=== PATIENT | female | born 1990 | race Caucasian/White ===

== ENCOUNTER → 2018-12-02 10:42 | Outpatient (CLI) | payer BC, SELFPAY ==
[2018-12-02 11:34] LABS: Hemoglobin 13.9 g/dL (12.0-16.0); Mean Corpuscular HGB Conc 33.9 % (30-36); Mean Corpuscular Volume 88.6 fL (80-100); Platelet Count 374 X10^3/uL (150-400); Red Blood Cell Count 4.63 X10^6/uL (4.0-5.2); Red Cell Distribution Width 13.7 % (11.6-14.8); White Blood Cell Count 9.1 X10^3/uL (4.5-11.0)
[2018-12-02 12:08] LABS: Alanine Aminotransferase 14 IU/L (9-52); Albumin 4.2 g/dL (3.5-5.0); Albumin Globulin Ratio 1.1 (1.0-2.8); Alkaline Phosphatase 82 U/L (38-126); Aspartate Aminotransferase 18 IU/L (14-36); Bilirubin Total 1.4 mg/dL (0.2-1.3); Blood Urea Nitrogen 9 mg/dL (7-17); Calcium 9.5 mg/dL (8.4-10.2); Carbon Dioxide 26 mmol/L (22-32); Chloride 102 mmol/L (98-107); Cholesterol 238 mg/dL (140-199); Estimated Glomerular Filt Rate > 60.0 mL/min (>60); Globulin 3.8 g/dL (1.7-4.1); Glucose 82 mg/dL (70-100); HDL Cholesterol 43 mg/dL (40-60); HEMOLYSIS < 15 (0-50); LDL Cholesterol Calculated 164 mg/dL (<100); Magnesium 1.9 mg/dL (1.6-2.3); Potassium 4.1 mmol/L (3.4-5.1); Sodium 138 mmol/L (137-145); Triglycerides 156 mg/dL (35-150)
[2018-12-02 12:20] LABS: Appearance Urine UA CLEAR; Bilirubin Urine UA NEGATIVE (NEGATIVE); Color Urine UA YELLOW; Glucose Urine UA NEGATIVE (Negative); Ketones Urine UA NEGATIVE (NEGATIVE); Leukocyte Esterase Urine UA TRACE (NEGATIVE); Nitrite Urine UA NEGATIVE (Negative); Occult Blood Urine UA 1+ (Negative); Protein Urine UA NEGATIVE (Negative); Specific Gravity Urine UA 1.015 (1.000-1.035); Urobilinogen Urine UA 0.2 E.U./dL (0.2); pH Urine UA 6.5 (4.5-8.0)
[2018-12-02 12:34] LABS: RBC Urine 1-5/HPF (0-5/HPF); Squamous Epithelial Cell Urine 5-10 /HPF (0-5/HPF); WBC Urine 1-5/HPF (0-5/HPF)
[2018-12-02 12:35] LABS: Bacteria Urine Many (>30); Mucus Urine 1+ (Negative)
[2018-12-02 13:11] LABS: Folate 6.6 ng/mL (2.76-20.0); Vitamin B12 402 pg/mL (239-931)
== END ==
PROVIDERS: Visit Provider Nurse Practitioner Family
DX: F50.2 Bulimia nervosa (principal); Z13.6 Encounter for screening for cardiovascular disorders; R53.83 Other fatigue
CPT/HCPCS: 36415; 80053; 80061; 81001; 82607; 82746; 83735; 85027

== ENCOUNTER → 2018-12-05 07:47 | Outpatient (CLI) | payer BC, SELFPAY ==
[2018-12-05 08:17] LABS: Bacteria Urine None Seen; RBC Urine None Seen (0-5/HPF); WBC Urine None Seen (0-5/HPF)
[2018-12-05 08:26] LABS: Appearance Urine UA CLEAR; Bilirubin Urine UA NEGATIVE (NEGATIVE); Color Urine UA YELLOW; Glucose Urine UA NEGATIVE (Negative); Ketones Urine UA NEGATIVE (NEGATIVE); Leukocyte Esterase Urine UA NEGATIVE (NEGATIVE); Nitrite Urine UA NEGATIVE (Negative); Occult Blood Urine UA 1+ (Negative); Protein Urine UA NEGATIVE (Negative); Urobilinogen Urine UA 0.2 E.U./dL (0.2); pH Urine UA 5.5 (4.5-8.0)
[2018-12-05 08:37] LABS: Culture Indicated Urine Cult Not Indicated; Urine Comments Microscopic Normal
== END ==
PROVIDERS: Visit Provider Nurse Practitioner Family
DX: R31.9 Hematuria, unspecified (principal)
CPT/HCPCS: 81001

== ENCOUNTER → 2018-12-21 07:29 | Outpatient (CLI) | payer BC, SELFPAY ==
[2018-12-21 07:52] LABS: Appearance Urine UA CLEAR; Bilirubin Urine UA NEGATIVE (NEGATIVE); Color Urine UA YELLOW; Glucose Urine UA NEGATIVE (Negative); Ketones Urine UA NEGATIVE (NEGATIVE); Leukocyte Esterase Urine UA NEGATIVE (NEGATIVE); Nitrite Urine UA NEGATIVE (Negative); Occult Blood Urine UA TRACE-LYSED (Negative); Protein Urine UA NEGATIVE (Negative); Specific Gravity Urine UA 1.025 (1.000-1.035); Urobilinogen Urine UA 0.2 E.U./dL (0.2)
[2018-12-21 08:14] LABS: RBC Urine 0-1/HPF (0-5/HPF); WBC Urine 0-1/HPF (0-5/HPF)
[2018-12-21 08:15] LABS: Bacteria Urine Few (2-10); Culture Indicated Urine Cult Not Indicated; Mucus Urine 1+ (Negative)
== END ==
PROVIDERS: Visit Provider Nurse Practitioner Family
DX: R31.9 Hematuria, unspecified (principal)
CPT/HCPCS: 81001

== ENCOUNTER → 2019-03-01 16:42 | Outpatient (CLI) | payer BC, SELFPAY ==
[2019-03-01 18:11] LABS: Hematocrit 40.2 % (36-46); Hemoglobin 13.6 g/dL (12.0-16.0); Mean Corpuscular HGB Conc 33.9 % (30-36); Mean Corpuscular Hemoglobin 30.4 PG (26-34); Mean Corpuscular Volume 89.7 fL (80-100); Platelet Count 393 X10^3/uL (150-400); Red Blood Cell Count 4.48 X10^6/uL (4.0-5.2); Red Cell Distribution Width 13.5 % (11.6-14.8); White Blood Cell Count 12.3 X10^3/uL (4.5-11.0)
[2019-03-01 18:16] LABS: BUN Creatinine Ratio 21.7 (6-22); Blood Urea Nitrogen 13 mg/dL (7-17); Calcium 9.5 mg/dL (8.4-10.2); Carbon Dioxide 31 mmol/L (22-32); Chloride 97 mmol/L (98-107); Estimated Glomerular Filt Rate > 60.0 mL/min (>60); Glucose 85 mg/dL (70-100); HEMOLYSIS < 15 (0-50); Potassium 4.4 mmol/L (3.4-5.1); Sodium 136 mmol/L (137-145)
== END ==
PROVIDERS: Visit Provider Nurse Practitioner Family
DX: F50.9 Eating disorder, unspecified (principal)
CPT/HCPCS: 36415; 80048; 85027

== ENCOUNTER → 2019-03-04 09:14 | Outpatient (CLI) | payer BC, SELFPAY ==
--- NOTE | 2019-03-04 | DI.CT.S_ITS ---
PROCEDURE: CT ABDOMEN PELVIS WO/W CON INDICATIONS: Other microscopic hematuria TECHNIQUE: Optional 5 mm thick noncontrast images acquired from the diaphragm to the symphysis pubis. After the administration of intravenous contrast, 5 mm thick images acquired from the diaphragm to the symphysis pubis after a 10-minute delay. 2 mm thick coronal and sagittal reformats were then performed of the kidneys and ureters. For radiation dose reduction, the following was used: automated exposure control, adjustment of mA and/or kV according to patient size. COMPARISON: None. FINDINGS: Image quality: Excellent. Lung bases: Lung bases are clear. Heart size is normal. Urinary system: Both kidneys are normal in size, without hydronephrosis or nephrolithiasis on pre-contrast images. No perinephric fat stranding. There is normal bilateral renal enhancement. Renal calyces appear normal in morphology when filled with contrast. Opacified portions of both ureters demonstrate normal caliber. The left distal ureter beginning at the pelvic inlet was not opacified with contrast. Bladder wall thickness is normal. No calcified bladder stones. Other solid organs: Liver is normal in size and enhancement. Gallbladder appears normal. Biliary system is non dilated. Pancreas enhances normally. Spleen is normal in size and enhancement. No adrenal nodules. Peritoneum and bowel: Bowel loops demonstrate normal wall thickness and caliber. Normal appendix. No free fluid or air. Nodes and vessels: No retroperitoneal or mesenteric adenopathy by size criteria. Aorta and inferior vena cava are normal in size. Abdominal wall: No ventral hernias. Pelvis: No pathologic free pelvic fluid. No inguinal hernias or adenopathy. Uterus and ovaries appear normal. Bones: No suspicious bony lesions. No vertebral body compression fractures. IMPRESSION: 1. No evidence of urinary calcification or obstructive uropathy. 2. Etiology of the hematuria is not evident from this study. Dictated by: Ashtyn Cornell M.D. on 03/04/2019 at 10:17 Approved by: Ashtyn Cornell M.D. on 03/04/2019 at 10:24
== END ==
PROVIDERS: Family Provider Nurse Practitioner Family; PCP Nurse Practitioner Family; Visit Provider Urology
DX: R31.29 Other microscopic hematuria (principal)
CPT/HCPCS: 74178; Q9967

== ENCOUNTER → 2019-06-01 17:02 | Outpatient (CLI) | payer BC, SELFPAY ==
[2019-06-01 17:31] LABS: Hemoglobin 13.3 g/dL (12.0-16.0); Mean Corpuscular Hemoglobin 30.9 PG (26-34); Mean Corpuscular Volume 90.9 fL (80-100); Platelet Count 382 X10^3/uL (150-400); Red Blood Cell Count 4.29 X10^6/uL (4.0-5.2); Red Cell Distribution Width 13.5 % (11.6-14.8); White Blood Cell Count 10.7 X10^3/uL (4.5-11.0)
[2019-06-01 18:01] LABS: Alanine Aminotransferase 17 IU/L (<35); Albumin 4.4 g/dL (3.5-5.0); Albumin Globulin Ratio 1.2 (1.0-2.8); Alkaline Phosphatase 91 U/L (38-126); Amylase 63 U/L (30-110); Aspartate Aminotransferase 20 IU/L (14-36); BUN Creatinine Ratio 22.9 (6-22); Bilirubin Total 0.7 mg/dL (0.2-1.3); Blood Urea Nitrogen 16 mg/dL (7-17); Calcium 9.7 mg/dL (8.4-10.2); Carbon Dioxide 29 mmol/L (22-32); Chloride 104 mmol/L (98-107); Estimated Glomerular Filt Rate > 60.0 mL/min (>60); Globulin 3.7 g/dL (1.7-4.1); Glucose 90 mg/dL (70-100); HEMOLYSIS < 15 (0-50); Magnesium 2.2 mg/dL (1.6-2.3); Potassium 4.7 mmol/L (3.4-5.1); Sodium 141 mmol/L (137-145); Total Protein 8.1 g/dL (6.3-8.2)
[2019-06-01 18:29] LABS: TSH w/ Reflex to FT4 1.69 uIU/mL (0.47-4.68)
== END ==
PROVIDERS: Family Provider Nurse Practitioner Family; PCP Nurse Practitioner Family; Referring Provider Nurse Practitioner Family; Visit Provider Nurse Practitioner Family
DX: F50.2 Bulimia nervosa (principal)
CPT/HCPCS: 36415; 80053; 82150; 83735; 84443; 85027

== ENCOUNTER 2019-06-02 21:05 | Emergency (ER) | payer BC, SELFPAY ==
[2019-06-02 21:05] VITALS: BMI 40.2
[2019-06-02 22:00] VITALS: BP 142/89; PULSE 72; RESP 15; O2SAT 98
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
[2019-06-02 22:08] LABS: Add Manual Diff / Slide Review NO; Basophils Absolute Auto 100 /uL (0-100); Basophils Percent Auto 0.7 % (0-2); Eosinophils Absolute Auto 100 /uL (0-450); Hemoglobin 14.2 g/dL (12.0-16.0); Lymphocytes Absolute Auto 4700 /uL (1100-4500); Lymphocytes Percent Auto 43.2 % (25-40); Mean Corpuscular HGB Conc 33.8 % (30-36); Mean Corpuscular Hemoglobin 30.2 PG (26-34); Mean Corpuscular Volume 89.6 fL (80-100); Monocytes Absolute Auto 600 /uL (0-900); Monocytes Percent Auto 5.5 % (3-14); Neutrophils Absolute Auto 5400 /uL (1500-7000); Neutrophils Percent Auto 49.6 % (50-75); Platelet Count 411 X10^3/uL (150-400); Red Blood Cell Count 4.69 X10^6/uL (4.0-5.2); Red Cell Distribution Width 13.4 % (11.6-14.8); White Blood Cell Count 10.8 X10^3/uL (4.5-11.0)
[2019-06-02] MEDS: hydrOXYzine pamoate 25 MG CAPSULE PO (22:18)
[2019-06-02 22:20] LABS: Lipase 68 U/L (23-300); Salicylate < 1.0 mg/dL (<20)
[2019-06-02 22:22] LABS: Acetaminophen < 10 ug/mL (10-30); Alanine Aminotransferase 21 IU/L (<35); Albumin 4.9 g/dL (3.5-5.0); Albumin Globulin Ratio 1.1 (1.0-2.8); Alkaline Phosphatase 110 U/L (38-126); Aspartate Aminotransferase 45 IU/L (14-36); Bilirubin Total 0.9 mg/dL (0.2-1.3); Blood Urea Nitrogen 12 mg/dL (7-17); Calcium 9.8 mg/dL (8.4-10.2); Carbon Dioxide 24 mmol/L (22-32); Chloride 102 mmol/L (98-107); Estimated Glomerular Filt Rate > 60.0 mL/min (>60); Ethanol (ETOH) < 10 mg/dL; Globulin 4.4 g/dL (1.7-4.1); Glucose 111 mg/dL (70-100); HEMOLYSIS 23 (0-50); Potassium 3.5 mmol/L (3.4-5.1); Sodium 138 mmol/L (137-145); Total Protein 9.3 g/dL (6.3-8.2)
[2019-06-02 22:28] LABS: Pregnancy Test Serum,Qual Negative (Negative)
[2019-06-02 22:56] LABS: Thyroid Stimulating Hormone 3.01 uIU/mL (0.47-4.68)
--- NOTE | 2019-06-02 23:12 | PC.NURSE ---
I spent 1:1 time with pt upon arrival until arrived. patients here 4303 States they have things they do together to get her to snap out of this. I left them together in room 13. He played her some songs and spoke with her. after 15 minutes, pt appears calm and (Frantz) calls me into her room. He states they are ready to go home. Frantz tells me that she went to a trauma therapy group and was supposed to return home. When she did not return he called her Mom and called her cell phone. I answered her cell phone when she arrived and when she did not answer my questions. Frantz says they are ready to go home. Pt states she feels safe going home and denies any thoughts of harming herself or others. Dr. Vick in to evaluate pt and agrees that pt cannot be held and is safe to go home with her .
== END 2019-06-02 23:27 | disposition home or self-care (01) ==
PROVIDERS: Emergency Provider Emergency Medicine; Family Provider Nurse Practitioner Family; PCP Nurse Practitioner Family
DX: F22 Delusional disorders (principal)
CPT/HCPCS: 80053; 80320; 80329; 83690; 84443; 84703; 85025; 99283; 99291; 99292; G0480

== ENCOUNTER 2019-06-03 10:08 | Emergency (ER) | payer BC, SELFPAY ==
--- NOTE | 2019-06-03 10:47 | PC.NURSE ---
pt paranoid, feels safest in the room with the door locked. pt afraid they are going to get me assured patient she was safe.
--- NOTE | 2019-06-03 10:49 | PC.NURSE ---
Attempted to contact all emergency contacts without success.
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
--- NOTE | 2019-06-03 11:59 | PC.NURSE ---
patient is sitting in corner of room between the wall and the gurney. Pt has ice pack. Pts and pccykh-gt-mue are in room with her. Pt is mumbling about glen ullin and cahto as well as saying omid Lopez.
[2019-06-03 12:04] LABS: Alanine Aminotransferase 21 IU/L (<35); Albumin 4.6 g/dL (3.5-5.0); Albumin Globulin Ratio 1.1 (1.0-2.8); Alkaline Phosphatase 91 U/L (38-126); Aspartate Aminotransferase 32 IU/L (14-36); BUN Creatinine Ratio 18.3 (6-22); Bilirubin Total 0.9 mg/dL (0.2-1.3); Blood Urea Nitrogen 11 mg/dL (7-17); Calcium 9.4 mg/dL (8.4-10.2); Carbon Dioxide 21 mmol/L (22-32); Chloride 106 mmol/L (98-107); Estimated Glomerular Filt Rate > 60.0 mL/min (>60); Ethanol (ETOH) < 10 mg/dL; Globulin 4.1 g/dL (1.7-4.1); Glucose 104 mg/dL (70-100); HEMOLYSIS 42 (0-50); Potassium 4.1 mmol/L (3.4-5.1); Sodium 139 mmol/L (137-145); Total Protein 8.7 g/dL (6.3-8.2)
--- NOTE | 2019-06-03 12:10 | PC.NURSE ---
Patients gave pt her normal medication (RN approved). Pt swallowed pill then went into the bathroom. The patient then proceeded to try to make herself vomit up the pill. STEPHANIE Ku convinced the pt to come out of the bathroom and sit on the bed. Pt is now offering to give another blood sample. Lab is on the way.
--- NOTE | 2019-06-03 12:15 | PC.NURSE ---
Patient is allowing her to sit on the gurney with her. Pt is asking why she is here in the ED and what happened. Pts gave her an ice pack which she is now holding on her neck
--- NOTE | 2019-06-03 12:25 | PC.NURSE ---
The patients is attempting to reorient the patient to current times. Pt is asking both her and mother in law about when theyre going to work and is saying shes sorry for being a burden
--- NOTE | 2019-06-03 12:29 | PC.NURSE ---
lab is at bedside, pt is tolerating the draw well
--- NOTE | 2019-06-03 12:30 | PC.NURSE ---
I have remained with 1:1 care with this pt from [id number]. Pt tries to continually leave department and is not trusting of staff. arrives and uses techniques already in place to talk patient out of her states.. and mother in law at bedside talking to pt.
--- NOTE | 2019-06-03 12:45 | PC.NURSE ---
pt is laying on [employer] with blanket over her head
[2019-06-03 12:46] LABS: Add Manual Diff / Slide Review NO; Basophils Absolute Auto 100 /uL (0-100); Basophils Percent Auto 0.7 % (0-2); Eosinophils Absolute Auto 100 /uL (0-450); Eosinophils Percent Auto 0.8 % (2-4); Hematocrit 39.9 % (36-46); Hemoglobin 13.6 g/dL (12.0-16.0); Lymphocytes Absolute Auto 2700 /uL (1100-4500); Lymphocytes Percent Auto 31.6 % (25-40); Mean Corpuscular HGB Conc 34.2 % (30-36); Mean Corpuscular Hemoglobin 30.5 PG (26-34); Mean Corpuscular Volume 89.2 fL (80-100); Monocytes Absolute Auto 600 /uL (0-900); Monocytes Percent Auto 6.6 % (3-14); Neutrophils Absolute Auto 5100 /uL (1500-7000); Neutrophils Percent Auto 60.3 % (50-75); Platelet Count 392 X10^3/uL (150-400); Red Blood Cell Count 4.47 X10^6/uL (4.0-5.2); Red Cell Distribution Width 13.5 % (11.6-14.8); White Blood Cell Count 8.5 X10^3/uL (4.5-11.0)
[2019-06-03 12:46] LABS: Thyroid Stimulating Hormone 1.99 uIU/mL (0.47-4.68)
--- NOTE | 2019-06-03 12:52 | PC.NURSE ---
Patient gave urine sample, was cooperative with this MARBLE INSTALLATION HELPER. Pt is now laying on the gurney with eyes closed
[2019-06-03 12:55] LABS: Bacteria Urine None Seen; WBC Urine None Seen (0-5/HPF)
[2019-06-03 13:01] LABS: Appearance Urine UA CLEAR; Bilirubin Urine UA NEGATIVE (NEGATIVE); Color Urine UA YELLOW; Glucose Urine UA NEGATIVE (Negative); Ketones Urine UA NEGATIVE (NEGATIVE); Leukocyte Esterase Urine UA NEGATIVE (NEGATIVE); Nitrite Urine UA NEGATIVE (Negative); Occult Blood Urine UA 2+ (Negative); Protein Urine UA NEGATIVE (Negative); Urobilinogen Urine UA 0.2 E.U./dL (0.2)
--- NOTE | 2019-06-03 13:03 | PC.NURSE ---
Pt is asking what time it is and how long shes been here. Pt repeatedly states she would like to go home. Pt is aware that test results are still pending.
[2019-06-03 13:05] LABS: Pregnancy Test Urine Negative (Negative); Ur Creatinine Normal (Normal); Ur Specific Gravity Normal (Normal); Urine pH Normal (Normal)
[2019-06-03 13:06] LABS: UR Morphine/Opiate cutoff 300 Negative (Negative); Urine Amphetamines Negative (Negative); Urine Barbiturates Negative (Negative); Urine Benzodiazepines Negative (Negative); Urine Cocaine Negative (Negative); Urine MDMA Negative (Negative); Urine Methadone Negative (Negative); Urine Methamphetamines Negative (Negative); Urine Oxycodone Negative (Negative); Urine Phencyclidine Negative (Negative); Urine Tetrahydrocannabinol Negative (Negative); Urine Tricyclic Antidepressant Negative (Negative)
[2019-06-03 13:10] LABS: pH Urine UA 6.5 (4.5-8.0)
[2019-06-03 13:12] LABS: Culture Indicated Urine Cult Not Indicated; RBC Urine 5-10/HPF (0-5/HPF)
--- NOTE | 2019-06-03 13:15 | PC.NURSE ---
pt dangling head over the edge of the gurney. Pt seems calm. Her and mother in law are at bedside. The pt is under constant supervision by this HEAD SAMPLER
--- NOTE | 2019-06-03 13:19 | PC.NURSE ---
Pt states she would like to speak to the DR. Pt stated that she would be okay with Dr Zayas coming to speak with her
--- NOTE | 2019-06-03 13:26 | DI.CT.S_ITS ---
PROCEDURE: CT HEAD/BRAIN WO CON INDICATIONS: mental status change TECHNIQUE: Noncontrast 4.5 mm thick angled axial sections acquired from the foramen magnum to the vertex, with coronal and sagittal reformats. For radiation dose reduction, the following was used: automated exposure control, adjustment of mA and/or kV according to patient size. COMPARISON: None. FINDINGS: Image quality: Excellent. CSF spaces: Basal cisterns are patent. No extra-axial fluid collections. Ventricles are normal in size and shape. Brain: No midline shift. No intracranial masses or hemorrhage. Brown-white matter interface is normal. Skull and face: Calvarium and visualized facial bones are intact, without suspicious lesions. Sinuses: There is a calcific density in the left maxillary sinus. Visualized sinuses and mastoids are otherwise clear. IMPRESSION: 1. No acute intracranial abnormalities. Dictated by: Melba Gates M.D. on 06/03/2019 at 13:56 Approved by: Melba Gates M.D. on 06/03/2019 at 14:00
--- NOTE | 2019-06-03 13:41 | PC.NURSE ---
Pt was taken to CT under the supervision of this ROLL FORMING MACHINE OPERATOR. The pt tolerated the scan well. Pt flinched whenever the male tech was near or got close to her. Patient was cooperative throughout the whole procedure.
--- NOTE | 2019-06-03 14:12 | PC.NURSE ---
pt is requesting a copy of her ED report from her visit yesterday 06/02. I told the pt that unfortunately she would have to go through medical records in order to get a copy of that. Pt is understanding at this time.
--- NOTE | 2019-06-03 14:17 | PC.NURSE ---
Dr Zayas at bedside
[2019-06-03 16:29] VITALS: BP 127/82; PULSE 72; RESP 16; O2SAT 100
--- NOTE | 2019-06-03 16:37 | CM.SWNOTE ---
DRAFTING TEACHER Consult Note This DRAFTING TEACHER requested for behavioral health assessment. This 29 yo female presents for the second day in a row to ED for extreme paranoid behavior, repeating words and phrases, not acting normally, and noncommunicative w/h/o Trauma and active PTSD Reviewed chart; Dr Vick saw Radha 2. and completed safety planning w/she and her spouse as they had requested. Dr Vick felt Radha did not meet the grave disability criteria to be detained. Today, STEPHANIE Ku explains that Radha calmed substantially after administration of meds, cool rag and arrival of her who has been playing calming music in her room, ED Rm 13. Met w/Radha and her Marcos, explained SW role. Radha is very soft spoken, states she is tired, she sounds younger than stated age, much like a teenager. Radha is A+O but does seem groggy, she admits to not remembering many of the details of her two presentations to the ED in the last 24-48 hrs (even though she drove herself to the ED 06.02.19, per STEPHANIE Ku). Radha further admits to h/o Trauma; she states she went to work yesterday, worked late felt stressed and attended her trauma group, she doesn't have much recollection after that. Radha states the meds she was started on during her eating disorder treatment in [place] seemed helpful and she remains on those, they help w/nightmares and daily anxiousness. Radha is resistant to another inpt treatment program and states (re: the program in [place]) they took away all my coping strategies and left me with nothing. Radha and Marcos agreed they wanted to go home and this DRAFTING TEACHER explained Radha would be considered a voluntary candidate to an inpt MH unit if she were agreeable; Radha denied SI/HI and was willing to go to her counselor Dea Barker who practiced EMDR/trauma focused work. Radha wanted to go home today. Placed call to Dea Barker, [facility] P# [phone], she explained she was new to seeing Radha and that when she spoke to her tele psychiatrist, he recommended she return to an inpt MH program because he suspected she was dissociating. Explained that Radha was not agreeable to this plan but was willing to see Dea for immediate f/u and Dea was able to scheduled for a counseling appt tomorrow 06.04.19 at 1300. Radha and spouse agreeable to plan, and agreed to return to the ED if Radha's symptoms returned Relayed above to Dr Zayas who plans to prepare Radha for DC [facility] [place]
== END 2019-06-03 16:37 | disposition home or self-care (01) ==
PROVIDERS: Emergency Provider Emergency Medicine; Family Provider Nurse Practitioner Family; PCP Nurse Practitioner Family
DX: F43.11 Post-traumatic stress disorder, acute (principal); R41.82 Altered mental status, unspecified
CPT/HCPCS: 70450; 80053; 80305; 80320; 81001; 81025; 84443; 85025; 99284

== ENCOUNTER → 2019-07-05 08:10 | Outpatient (CLI) | payer BC, SELFPAY ==
--- NOTE | 2019-07-05 | DI.US.S_ITS ---
PROCEDURE: US ABDOMEN COMPLETE INDICATIONS: NAUSEA WITH VOMITITNG TECHNIQUE: Real-time scanning was performed of the abdominal and retroperitoneal organs, with image documentation. COMPARISON: [facility], CT, CT ABDOMEN PELVIS WO/W CON, 03/04/2019, 9:20. FINDINGS: Liver: Liver is normal in size and homogeneous in echotexture. Gallbladder: No findings of gallstones or sludge are seen. The gallbladder wall is not thickened, measuring 3 mm or less. No specific pericholecystic fluid is seen. The sonographic Bernal sign is negative. Biliary ducts: Intrahepatic bile ducts are non-dilated. Extrahepatic bile duct caliber measures 3 mm. Normal is 6-7 mm or less in diameter, or 10 mm or less post-cholecystectomy. Pancreas: Visualized portions of the pancreas are sonographically normal. Spleen: Spleen is normal in size and homogeneous in echotexture. Kidneys: Kidneys are normal in size and echotexture. Right kidney measures 11.4 cm long; left kidney measures 11.5 cm long. No hydronephrosis or nephrolithiasis. No solid masses. Aorta: Visualized aorta is normal in caliber at less than 3 cm. Iliacs: Proximal common iliac arteries are normal in caliber at less than 2.5 cm. IVC: Intrahepatic inferior vena cava is patent. Miscellaneous: No free abdominal fluid. IMPRESSION: Negative abdominal ultrasound. The gallbladder demonstrates a normal sonographic appearance. No biliary dilatation is seen. Dictated by: Joey Montana M.D. on 07/05/2019 at 10:53 Approved by: Joey Montana M.D. on 07/05/2019 at 10:54
== END ==
PROVIDERS: Family Provider Nurse Practitioner Family; PCP Nurse Practitioner Family; Referring Provider Physician Assistant; Visit Provider Physician Assistant
DX: R11.2 Nausea with vomiting, unspecified (principal)
CPT/HCPCS: 76700

== ENCOUNTER 2019-07-30 10:21 | Emergency (ER) | payer BC, SELFPAY ==
--- NOTE | 2019-07-30 10:29 | ED.PSYCH ---
HPI - Psych General Chief Complaint: Psychiatric Symptoms Stated Complaint: Paranoid delusions Time Seen by Provider: 07/30/19 10:29 Source: patient, EMS and police Mode of arrival: EMS Limitations: altered mental status History of Present Illness HPI Narrative: This is a 29-year-old female brought in by EMS for paranoid and altered behavior. Patient was brought from a local restaurant [employer] she was found and stating that she is in [place]. She has not been willing to speak with EMS but was willing to talk to the safety instruction police officer that was present. She has a history of PTSD with dissociative symptoms, depression, hirsutism, PCOS and psoriasis. Patient does take medications regularly for this. She has been here with similar type symptoms in the past she is but when asked if she has a she states no. She is cooperative but does not really answer questions for me. She keeps asking for [place] polic[place] or police but does not answer other questions. She tells me the year is 2005. She is her is on his way to the emergency department he has already been contacted by PD. She is denying any ingestions. Related Data Home Medications Medication Instructions Recorded Confirmed adalimumab 40 mg/0.8 mL 40 mg SUBCUT QWEEK ml 09/19/17 06/18/19 subcutaneous syringe kit hydroxyzine HCl 25 mg PO BID PRN 06/03/19 06/18/19 prazosin 2 mg capsule 2 mg PO BEDTIME 06/03/19 06/18/19 fluoxetine 40 mg capsule 80 mg PO DAILY 06/18/19 06/18/19 lamotrigine 25 mg tablet 25 mg PO DAILY tab 06/18/19 06/18/19 pantoprazole 40 mg tablet,delayed 40 mg PO DAILY 06/18/19 06/18/19 release Allergies Allergy/AdvReac Type Severity Reaction Status Date / Time pineapple [PINEAPPLE] Allergy Unknown Verified 06/18/19 10:04 Review of Systems Review of Systems ROS Unobtainable: Unobtainable due to mental condition Patient History Medical History Depression (Acute) Dissociation (Acute) Hirsutism (Chronic) Irregular periods (Chronic) PCOS (polycystic ovarian syndrome) (Suspected) Psoriasis (Chronic) Social History marital status: household members: spouse lives independently: Yes caregiver/support person: No Smoking Status: Never smoker second hand exposure: No alcohol intake: never substance use type: does not use Smoking Status: Never smoker Substance Use Type: does not use Exam Narrative Exam Narrative: GENERAL: Alert female, obese female with some hirsutism HEENT: Head normocephalic, atraumatic, EOMI, no nystagmus, pupils reactive, face symmetric, moist mucous membranes NECK: Supple, full range of motion CARDIOVASCULAR: Regular rate and rhythm without murmurs, rubs or gallops. RESPIRATORY: Breath sounds equal bilaterally, no wheezes rales or rhonchi. ABDOMEN: Soft, nontender. Normoactive bowel sounds all 4 quadrants. No guarding or rebound, rigidity, no mass EXTREMITIES: Normal range of motion, no clubbing or edema. Neurovascularly intact NEUROLOGICAL: Cranial nerves II through XII grossly intact. Moving all extremities. Normal gait. SKIN: Warm, dry, no petechiae, no rashes or lesions. PSYCH: patient denies intent to harm self or others, she seems paranoid, does not answer majority of questions and believes she is in [place]. Initial Vital Signs Initial Vital Signs: Vital Signs Temperature 97.7 F 07/30/19 10:41 Pulse Rate 107 H 07/30/19 10:41 Respiratory Rate 14 07/30/19 10:41 Blood Pressure 140/77 07/30/19 10:41 Pulse Oximetry 96 07/30/19 10:41 Course Orders Ordered: ED Orders 07/30/19 10:48 Complete Blood Count AUTO DIFF Stat Comprehensive Metabolic Panel Stat Ethanol (ETOH) Stat Lamotrigine Lamictal Stat Thyroid Stimulating Hormone Stat 07/30/19 11:10 Test Urine Stat Urinalysis and Microscopic Stat Urine Culture Stat Urine Drug Screen, Rapid Stat Discontinued Medications Hydroxyzine Pamoate (Vistaril) 25 mg PO NOW ONE Stop: 07/30/19 10:39 Last Admin: 07/30/19 11:44 Dose: 25 mg Documented by: SAMMI Vital Signs Vital signs: Vital Signs - 8 hr 07/30/19 10:41 07/30/19 12:14 Temperature 97.7 F Pulse Rate 107 H 85 Respiratory Rate 14 Blood Pressure 140/77 Blood Pressure [Right Arm] 113/73 Pulse Oximetry 96 98 MDM - Psych Lab Data Attestation: I reviewed the patient's lab results. Result diagrams: 07/30/19 10:48 07/30/19 10:48 Labs: Lab Results 07/30/19 07/30/19 07/30/19 Range/Units 10:48 10:48 10:48 WBC 8.3 (4.5-11.0) X10^3/uL RBC 4.40 (4.0-5.2) X10^6/uL Hgb 13.1 (12.0-16.0) g/dL Hct 39.3 (36-46) % MCV 89.2 (80-100) fL MCH 29.8 (26-34) PG MCHC 33.4 (30-36) % RDW 13.3 (11.6-14.8) % Plt Count 378 (150-400) X10^3/uL Neut % (Auto) 70.1 (50-75) % Lymph % (Auto) 21.9 L (25-40) % [place] % (Auto) 6.4 (3-14) % Eos % (Auto) 1.3 L (2-4) % Baso % (Auto) 0.3 (0-2) % Neut # (Auto) 5800 (5494-1580) /uL Lymph # (Auto) 1800 (2638-4280) /uL Hamilton # (Auto) 500 (0-900) /uL Eos # (Auto) 100 (0-450) /uL Baso # (Auto) 0 (0-100) /uL Sodium 139 (137-145) mmol/L Potassium 3.6 (3.4-5.1) mmol/L Chloride 107 (98-107) mmol/L Carbon Dioxide 23 (22-32) mmol/L BUN 15 (7-17) mg/dL Creatinine 0.67 (0.52-1.04) mg/dL Estimated GFR > 60.0 (>60) mL/min BUN/Creatinine Ratio 22.4 H (6-22) Glucose 112 H (70-100) mg/dL Calcium 9.0 (8.4-10.2) mg/dL Total Bilirubin 0.5 (0.2-1.3) mg/dL AST 20 (14-36) IU/L ALT 17 (<35) IU/L Alkaline Phosphatase 91 (38-126) U/L Total Protein 8.0 (6.3-8.2) g/dL Albumin 4.2 (3.5-5.0) g/dL Globulin 3.8 (1.7-4.1) g/dL Albumin/Globulin Ratio 1.1 (1.0-2.8) TSH 1.12 (0.47-4.68) uIU/mL Urine Color Urine Appearance Urine pH (4.5-8.0) Ur Specific [place] (1.000-1.035) Urine Protein (Negative) Urine Glucose (UA) (Negative) g/dL Urine Ketones (NEGATIVE) Urine Occult Blood (Negative) Urine Nitrate (Negative) Urine Bilirubin (NEGATIVE) Urine Urobilinogen (0.2) E.U./dL Ur Leukocyte Esterase (NEGATIVE) Urine RBC (0-5/HPF) Urine WBC (0-5/HPF) Ur Squamous Epith Cells (0-5/HPF) Urine Bacteria (None) Urine Mucus (Negative) Ur Culture Indicated? Urine Test (Negative) U Opiates 300ng/mL cut (Negative) Ur Oxycodone Screen (Negative) Urine Methadone Screen (Negative) Ur Barbiturates Screen (Negative) U Tricyclic Antidepress (Negative) Ur Phencyclidine Scrn (Negative) Ur Amphetamines Screen (Negative) U Methamphetamines Scrn (Negative) Ur MDMA Scrn (Ecstasy) (Negative) U Benzodiazepines Scrn (Negative) Urine Cocaine Screen (Negative) U Marijuana (THC) Screen (Negative) Ethyl Alcohol < 10 ( - 10) mg/dL 07/30/19 07/30/19 07/30/19 Range/Units 11:10 11:10 11:10 WBC (4.5-11.0) X10^3/uL RBC (4.0-5.2) X10^6/uL Hgb (12.0-16.0) g/dL Hct (36-46) % MCV (80-100) fL MCH (26-34) PG MCHC (30-36) % RDW (11.6-14.8) % Plt Count (150-400) X10^3/uL Neut % (Auto) (50-75) % Lymph % (Auto) (25-40) % [place] % (Auto) (3-14) % Eos % (Auto) (2-4) % Baso % (Auto) (0-2) % Neut # (Auto) (5285-8177) /uL Lymph # (Auto) (6117-6230) /uL Hamilton # (Auto) (0-900) /uL Eos # (Auto) (0-450) /uL Baso # (Auto) (0-100) /uL Sodium (137-145) mmol/L Potassium (3.4-5.1) mmol/L Chloride (98-107) mmol/L Carbon Dioxide (22-32) mmol/L BUN (7-17) mg/dL Creatinine (0.52-1.04) mg/dL Estimated GFR (>60) mL/min BUN/Creatinine Ratio (6-22) Glucose (70-100) mg/dL Calcium (8.4-10.2) mg/dL Total Bilirubin (0.2-1.3) mg/dL AST (14-36) IU/L ALT (<35) IU/L Alkaline Phosphatase (38-126) U/L Total Protein (6.3-8.2) g/dL Albumin (3.5-5.0) g/dL Globulin (1.7-4.1) g/dL Albumin/Globulin Ratio (1.0-2.8) TSH (0.47-4.68) uIU/mL Urine Color Brown Urine Appearance Cloudy Urine pH 5.5 (4.5-8.0) Ur Specific [place] 1.025 (1.000-1.035) Urine Protein 1+ H (Negative) Urine Glucose (UA) Negative (Negative) g/dL Urine Ketones Negative (NEGATIVE) Urine Occult Blood 3+ H (Negative) Urine Nitrate Negative (Negative) Urine Bilirubin Negative (NEGATIVE) Urine Urobilinogen 0.2 (0.2) E.U./dL Ur Leukocyte Esterase Trace H (NEGATIVE) Urine RBC >100/hpf H (0-5/HPF) Urine WBC 1-5/hpf (0-5/HPF) Ur Squamous Epith Cells 1-5 /hpf (0-5/HPF) Urine Bacteria Many (>30) H (None) Urine Mucus 1+ H (Negative) Ur Culture Indicated? Specimen cultured Urine Test Negative (Negative) U Opiates 300ng/mL cut Negative (Negative) Ur Oxycodone Screen Negative (Negative) Urine Methadone Screen Negative (Negative) Ur Barbiturates Screen Negative (Negative) U Tricyclic Antidepress Negative (Negative) Ur Phencyclidine Scrn Negative (Negative) Ur Amphetamines Screen Negative (Negative) U Methamphetamines Scrn Negative (Negative) Ur MDMA Scrn (Ecstasy) Negative (Negative) U Benzodiazepines Scrn Negative (Negative) Urine Cocaine Screen Negative (Negative) U Marijuana (THC) Screen Negative (Negative) Ethyl Alcohol ( - 10) mg/dL MDM Narrative Medical decision making narrative: Patient urine shows possible uti changes. Sent for culture. Urine preg is negative. UDS is negative. Patient CBC shows low lymphs, no other major changes. CMP shows glucose of 112, renal function, LFTs and electrolytes are normal range. Etoh is negative. TSH is Lamotrigine level is send out and pending. Patient symptoms are typical of prior events. arrived and asked if he may give patients home atarax. Verified with nursing and patient given home dose. Patient is improving here in the department and more appropriate and aware of her current situation. She no longer follows with Dea Barker but has multiple providers to follow up with including her physician and counselors, both and patient feel comfortable returning home. Both feel safe and that patient will not harm herself or others and is able to make appropriate decisions. Discharge Plan Departure Patient Disposition: Home Clinical Impression: Acute post-traumatic stress disorder, Psychosis Discharge Date/Time: 07/30/19 12:17 Instructions: Post-traumatic Stress Disorder, DI for Psychosis Activity Restrictions/Additional Instructions: Follow up with your counselor and physician. Continue home medications as prescribed. Lamotrigine level is pending, this takes several days to result. Your urine shows changes consistent with possible UTI or bladder infection, urine culture is pending and takes 48-72 hours to result. If positive you should expect a phone call. Return if new or worsening symptoms, persistent changes in mental status, severe headaches, persistent vomiting, concern that you may harm yourself or others, or other new or concerning symptoms. Prescriptions: No Action adalimumab [Humira] 40 mg/0.8 mL syringe kit 40 mg SUBCUT QWEEK RF: 0 prazosin 2 mg capsule 2 mg PO BEDTIME RF: 0 fluoxetine 40 mg capsule 80 mg PO DAILY RF: 0 pantoprazole 40 mg tablet,delayed release (DR/EC) 40 mg PO DAILY RF: 0 lamotrigine 25 mg tablet 25 mg PO DAILY RF: 0 hydroxyzine HCl 25 mg tablet 25 mg PO BID PRN (Reason: Anxiety) RF: 0 Referrals: rAturo Ibarra ARNP [Primary Care Provider] -
[2019-07-30 10:41] VITALS: BP 140/77; PULSE 107; RESP 14; TEMP 36.5; O2SAT 96
--- NOTE | 2019-07-30 10:50 | PC.NURSE ---
patient refuses to drink water states it is alcohol. Reassured patient it was water, still refuses. Offered a sealed juice patient refused. Reminded patient we need a urine sample
--- NOTE | 2019-07-30 10:50 | PC.NURSE ---
Patient intermittently rambling words. State bulemia gestures to put fingers down throat. Reminded patient that was not safe. Patient states run away reminded patient to stay in room. Reminded of plan of care. Patient states run, bike work out. Told patient she could move about in the room as long as she was safe but could not leave room. Patient easily redirected
[2019-07-30 10:54] LABS: Add Manual Diff / Slide Review NO; Basophils Absolute Auto 0 /uL (0-100); Basophils Percent Auto 0.3 % (0-2); Eosinophils Absolute Auto 100 /uL (0-450); Eosinophils Percent Auto 1.3 % (2-4); Hematocrit 39.3 % (36-46); Hemoglobin 13.1 g/dL (12.0-16.0); Lymphocytes Absolute Auto 1800 /uL (1100-4500); Lymphocytes Percent Auto 21.9 % (25-40); Mean Corpuscular HGB Conc 33.4 % (30-36); Mean Corpuscular Hemoglobin 29.8 PG (26-34); Mean Corpuscular Volume 89.2 fL (80-100); Monocytes Absolute Auto 500 /uL (0-900); Monocytes Percent Auto 6.4 % (3-14); Neutrophils Absolute Auto 5800 /uL (1500-7000); Neutrophils Percent Auto 70.1 % (50-75); Platelet Count 378 X10^3/uL (150-400); Red Cell Distribution Width 13.3 % (11.6-14.8); White Blood Cell Count 8.3 X10^3/uL (4.5-11.0)
--- NOTE | 2019-07-30 11:07 | PC.NURSE ---
patient up to restroom to provide sample. When door closed patient self induced vomiting twice. Opened door and reminded patient that was not safe or appropriate. Redirected patient to providing urine sample.
[2019-07-30 11:09] LABS: Alanine Aminotransferase 17 IU/L (<35); Albumin 4.2 g/dL (3.5-5.0); Albumin Globulin Ratio 1.1 (1.0-2.8); Alkaline Phosphatase 91 U/L (38-126); Aspartate Aminotransferase 20 IU/L (14-36); BUN Creatinine Ratio 22.4 (6-22); Bilirubin Total 0.5 mg/dL (0.2-1.3); Blood Urea Nitrogen 15 mg/dL (7-17); Carbon Dioxide 23 mmol/L (22-32); Chloride 107 mmol/L (98-107); Estimated Glomerular Filt Rate > 60.0 mL/min (>60); Ethanol (ETOH) < 10 mg/dL; Globulin 3.8 g/dL (1.7-4.1); Glucose 112 mg/dL (70-100); HEMOLYSIS < 15 (0-50); Potassium 3.6 mmol/L (3.4-5.1); Sodium 139 mmol/L (137-145)
--- NOTE | 2019-07-30 11:13 | PC.NURSE ---
Patient attempted to bolt out of department. Patient stopped at exit door of ER. Escorted back to room.
[2019-07-30 11:20] LABS: Appearance Urine UA CLOUDY; Bilirubin Urine UA NEGATIVE (NEGATIVE); Color Urine UA BROWN; Glucose Urine UA NEGATIVE (Negative); Ketones Urine UA NEGATIVE (NEGATIVE); Leukocyte Esterase Urine UA TRACE (NEGATIVE); Nitrite Urine UA NEGATIVE (Negative); Occult Blood Urine UA 3+ (Negative); Protein Urine UA 1+ (Negative); Specific Gravity Urine UA 1.025 (1.000-1.035); Urobilinogen Urine UA 0.2 E.U./dL (0.2)
[2019-07-30 11:24] LABS: Pregnancy Test Urine Negative (Negative); UR Morphine/Opiate cutoff 300 Negative (Negative); Ur Creatinine Normal (Normal); Ur Specific Gravity Normal (Normal); Urine Amphetamines Negative (Negative); Urine Cocaine Negative (Negative); Urine Methamphetamines Negative (Negative); Urine Tetrahydrocannabinol Negative (Negative); Urine pH Normal (Normal)
[2019-07-30 11:25] LABS: Urine Barbiturates Negative (Negative); Urine Benzodiazepines Negative (Negative); Urine MDMA Negative (Negative); Urine Methadone Negative (Negative); Urine Oxycodone Negative (Negative); Urine Phencyclidine Negative (Negative); Urine Tricyclic Antidepressant Negative (Negative); pH Urine UA 5.5 (4.5-8.0)
[2019-07-30 11:33] LABS: Bacteria Urine Many (>30); Culture Indicated Urine Specimen Cultured; Mucus Urine 1+ (Negative); RBC Urine >100/HPF (0-5/HPF); Squamous Epithelial Cell Urine 1-5 /HPF (0-5/HPF); WBC Urine 1-5/HPF (0-5/HPF)
[2019-07-30] MEDS: hydrOXYzine pamoate 25 MG CAPSULE PO (11:44)
--- NOTE | 2019-07-30 11:44 | PC.NURSE ---
Patient provided patient dose of homemeds
--- NOTE | 2019-07-30 11:45 | PC.NURSE ---
arrived and is talking with patient. She is sitting down and calm.
[2019-07-30 12:00] LABS: Thyroid Stimulating Hormone 1.12 uIU/mL (0.47-4.68)
--- NOTE | 2019-07-30 12:01 | PC.NURSE ---
Pt is still sitting and calm; is quietly talking with her.
[2019-07-30 12:14] VITALS: BP 113/73; PULSE 85; O2SAT 98
--- NOTE | 2019-07-30 12:17 | PC.NURSE ---
Patient speaking clearer with spouse. Patient calm and interactive.
[2019-08-02 10:08] LABS: Lamotrigine Lamictal 2.1 ug/mL (2.0-20.0)
== END 2019-07-30 12:17 | disposition home or self-care (01) ==
PROVIDERS: Emergency Provider Emergency Medicine; Family Provider Nurse Practitioner Family; PCP Nurse Practitioner Family
DX: F43.11 Post-traumatic stress disorder, acute (principal); F29 Unspecified psychosis not due to a substance or known physiological condition
CPT/HCPCS: 36415; 80053; 80175; 80305; 80320; 81001; 81025; 84443; 85025; 87086; 99283; 99284

== ENCOUNTER → 2019-09-17 15:39 | Outpatient (CLI) | payer BC, SELFPAY ==
[2019-09-17 16:14] LABS: Add Manual Diff / Slide Review NO; Basophils Absolute Auto 0 /uL (0-100); Basophils Percent Auto 0.3 % (0-2); Eosinophils Absolute Auto 300 /uL (0-450); Eosinophils Percent Auto 2.6 % (2-4); Hemoglobin 13.8 g/dL (12.0-16.0); Lymphocytes Absolute Auto 3700 /uL (1100-4500); Lymphocytes Percent Auto 34.7 % (25-40); Mean Corpuscular HGB Conc 34.4 % (30-36); Mean Corpuscular Hemoglobin 30.3 PG (26-34); Mean Corpuscular Volume 88.2 fL (80-100); Monocytes Absolute Auto 800 /uL (0-900); Monocytes Percent Auto 7.2 % (3-14); Neutrophils Absolute Auto 5900 /uL (1500-7000); Neutrophils Percent Auto 55.2 % (50-75); Platelet Count 401 X10^3/uL (150-400); Red Blood Cell Count 4.53 X10^6/uL (4.0-5.2); Red Cell Distribution Width 13.5 % (11.6-14.8); White Blood Cell Count 10.7 X10^3/uL (4.5-11.0)
[2019-09-17 16:24] LABS: Alanine Aminotransferase 25 IU/L (<35); Albumin 4.3 g/dL (3.5-5.0); Albumin Globulin Ratio 1.1 (1.0-2.8); Alkaline Phosphatase 102 U/L (38-126); Aspartate Aminotransferase 26 IU/L (14-36); BUN Creatinine Ratio 25.4 (6-22); Bilirubin Total 0.7 mg/dL (0.2-1.3); Blood Urea Nitrogen 16 mg/dL (7-17); Calcium 9.3 mg/dL (8.4-10.2); Carbon Dioxide 25 mmol/L (22-32); Chloride 104 mmol/L (98-107); Estimated Glomerular Filt Rate > 60.0 mL/min (>60); Glucose 92 mg/dL (70-100); HEMOLYSIS < 15 (0-50); Sodium 136 mmol/L (137-145); Total Protein 8.3 g/dL (6.3-8.2)
[2019-09-17 16:45] LABS: Appearance Urine UA CLEAR; Bilirubin Urine UA NEGATIVE (NEGATIVE); Color Urine UA YELLOW; Glucose Urine UA NEGATIVE (Negative); Ketones Urine UA NEGATIVE (NEGATIVE); Leukocyte Esterase Urine UA NEGATIVE (NEGATIVE); Nitrite Urine UA NEGATIVE (Negative); Occult Blood Urine UA 2+ (Negative); Protein Urine UA NEGATIVE (Negative); Specific Gravity Urine UA 1.025 (1.000-1.035); Urobilinogen Urine UA 0.2 E.U./dL (0.2)
[2019-09-17 16:55] LABS: RBC Urine 5-10/HPF (0-5/HPF); WBC Urine 5-10/HPF (0-5/HPF)
[2019-09-17 16:56] LABS: Bacteria Urine Moderate (10-30); Culture Indicated Urine Specimen Cultured; Mucus Urine 1+ (Negative); Squamous Epithelial Cell Urine 5-10 /HPF (0-5/HPF)
== END ==
PROVIDERS: Family Provider Nurse Practitioner Family; PCP Nurse Practitioner Family; Referring Provider Nurse Practitioner Family; Visit Provider Nurse Practitioner Family
DX: F50.2 Bulimia nervosa (principal)
CPT/HCPCS: 36415; 80053; 81001; 85025; 87086

== ENCOUNTER → 2019-11-04 13:51 | Outpatient (CLI) | payer BC, SELFPAY ==
[2019-11-06 15:38] LABS: COVID19 Sendout Not Detected (Not Detected)
== END ==
PROVIDERS: Family Provider Nurse Practitioner Family; PCP Nurse Practitioner Family; Visit Provider Physician Assistant
DX: Z03.818 Encounter for observation for suspected exposure to other biological agents ruled out (principal)
CPT/HCPCS: 87635

== ENCOUNTER → 2019-11-23 16:35 | Outpatient (CLI) | payer BC, SELFPAY ==
[2019-11-23 17:31] LABS: Add Manual Diff / Slide Review NO; Basophils Absolute Auto 0 /uL (0-100); Basophils Percent Auto 0.4 % (0-2); Eosinophils Absolute Auto 200 /uL (0-450); Eosinophils Percent Auto 1.6 % (2-4); Hematocrit 39.2 % (36-46); Hemoglobin 13.3 g/dL (12.0-16.0); Lymphocytes Absolute Auto 3800 /uL (1100-4500); Lymphocytes Percent Auto 37.9 % (25-40); Mean Corpuscular HGB Conc 33.8 % (30-36); Mean Corpuscular Hemoglobin 30.1 PG (26-34); Mean Corpuscular Volume 89.1 fL (80-100); Monocytes Absolute Auto 800 /uL (0-900); Monocytes Percent Auto 7.6 % (3-14); Neutrophils Absolute Auto 5300 /uL (1500-7000); Neutrophils Percent Auto 52.5 % (50-75); Platelet Count 373 X10^3/uL (150-400); Red Cell Distribution Width 13.6 % (11.6-14.8); White Blood Cell Count 10.1 X10^3/uL (4.5-11.0)
[2019-11-23 17:47] LABS: Alanine Aminotransferase 31 IU/L (<35); Albumin 4.3 g/dL (3.5-5.0); Albumin Globulin Ratio 1.1 (1.0-2.8); Alkaline Phosphatase 94 U/L (38-126); Aspartate Aminotransferase 33 IU/L (14-36); BUN Creatinine Ratio 23.9 (6-22); Bilirubin Total 0.5 mg/dL (0.2-1.3); Blood Urea Nitrogen 16 mg/dL (7-17); Calcium 9.2 mg/dL (8.4-10.2); Carbon Dioxide 26 mmol/L (22-32); Chloride 103 mmol/L (98-107); Estimated Glomerular Filt Rate > 60.0 mL/min (>60); Glucose 89 mg/dL (70-100); HEMOLYSIS 32 (0-50); Potassium 4.2 mmol/L (3.4-5.1); Sodium 136 mmol/L (137-145); Total Protein 8.3 g/dL (6.3-8.2)
== END ==
PROVIDERS: Family Provider Nurse Practitioner Family; PCP Nurse Practitioner Family; Referring Provider Nurse Practitioner Family; Visit Provider Nurse Practitioner Family
DX: F50.2 Bulimia nervosa (principal)
CPT/HCPCS: 36415; 80053; 83735; 85025

== ENCOUNTER → 2020-02-12 08:25 | Outpatient (CLI) | payer BC, SELFPAY ==
[2020-02-12 09:19] LABS: Hemoglobin 13.7 g/dL (12.0-16.0); Mean Corpuscular HGB Conc 33.5 % (30-36); Mean Corpuscular Hemoglobin 30.3 PG (26-34); Mean Corpuscular Volume 90.4 fL (80-100); Platelet Count 416 X10^3/uL (150-400); Red Blood Cell Count 4.54 X10^6/uL (4.0-5.2); Red Cell Distribution Width 13.7 % (11.6-14.8); White Blood Cell Count 9.5 X10^3/uL (4.5-11.0)
[2020-02-12 09:32] LABS: Alanine Aminotransferase 23 IU/L (<35); Albumin 4.3 g/dL (3.5-5.0); Albumin Globulin Ratio 1.1 (1.0-2.8); Alkaline Phosphatase 82 U/L (38-126); Aspartate Aminotransferase 25 IU/L (14-36); BUN Creatinine Ratio 20.3 (6-22); Bilirubin Total 0.9 mg/dL (0.2-1.3); Blood Urea Nitrogen 12 mg/dL (7-17); Calcium 9.1 mg/dL (8.4-10.2); Carbon Dioxide 31 mmol/L (22-32); Chloride 102 mmol/L (98-107); Estimated Glomerular Filt Rate > 60.0 mL/min (>60); Globulin 3.9 g/dL (1.7-4.1); Glucose 93 mg/dL (70-100); HEMOLYSIS < 15 (0-50); Phosphorous 3.6 mg/dL (2.5-4.5); Potassium 4.1 mmol/L (3.4-5.1); Sodium 137 mmol/L (137-145); Total Protein 8.2 g/dL (6.3-8.2)
[2020-02-14 16:27] LABS: Hemoglobin A1C% w Est Avg Glu 5.5 % (4.0-6.0)
== END ==
PROVIDERS: Family Provider Nurse Practitioner Family; PCP Nurse Practitioner Family; Referring Provider Nurse Practitioner Family; Visit Provider Nurse Practitioner Family
DX: Z00.00 Encounter for general adult medical examination without abnormal findings (principal); F50.2 Bulimia nervosa
CPT/HCPCS: 36415; 80053; 83036; 83735; 84100; 85027

== ENCOUNTER → 2020-05-22 11:16 | Outpatient (CLI) | payer BC, SELFPAY ==
[2020-05-23 09:06] LABS: Candida species Negative (Negative); Gardnerella vaginalis Negative (Negative); Trichomoas vaginalis Negative (Negative)
[2020-05-25 12:35] LABS: Chlamydia trachomatis Negative (Negative); Mycoplasma genitalium Negative (Negative); Neisseria gonorrhoeae Negative (Negative)
== END ==
PROVIDERS: Family Provider Nurse Practitioner Family; PCP Nurse Practitioner Family; Visit Provider Obstetrics & Gynecology
DX: L29.2 Pruritus vulvae (principal)
CPT/HCPCS: 87070; 87205; 87480; 87491; 87510; 87563; 87591; 87660

== ENCOUNTER → 2020-10-11 12:17 | Outpatient (CLI) | payer BC, SELFPAY ==
[2020-10-11 12:41] LABS: COVID19 -Nasal RAPID Negative (Negative)
== END ==
PROVIDERS: Family Provider Nurse Practitioner Family; PCP Nurse Practitioner Family; Visit Provider Student in an Organized Health Care Education/Training Program
DX: Z20.822 Contact with and (suspected) exposure to COVID-19 (principal); J02.9 Acute pharyngitis, unspecified
CPT/HCPCS: 87070; 87147; 87635

== ENCOUNTER → 2020-12-04 16:57 | Outpatient (CLI) | payer BC, SELFPAY ==
[2020-12-04 18:05] LABS: Hematocrit 39.8 % (36-46); Hemoglobin 13.6 g/dL (12.0-16.0); Mean Corpuscular Hemoglobin 30.2 PG (26-34); Mean Corpuscular Volume 88.8 fL (80-100); Platelet Count 424 X10^3/uL (150-400); Red Blood Cell Count 4.49 X10^6/uL (4.0-5.2); Red Cell Distribution Width 13.8 % (11.6-14.8); White Blood Cell Count 12.2 X10^3/uL (4.5-11.0)
[2020-12-04 18:12] LABS: Hemoglobin A1C% w Est Avg Glu 5.5 % (4.0-6.0)
[2020-12-04 18:20] LABS: Alanine Aminotransferase 22 IU/L (<35); Albumin 4.2 g/dL (3.5-5.0); Albumin Globulin Ratio 0.9 (1.0-2.8); Alkaline Phosphatase 105 U/L (38-126); Aspartate Aminotransferase 26 IU/L (14-36); Bilirubin Total 0.4 mg/dL (0.2-1.3); Blood Urea Nitrogen 11 mg/dL (7-17); Calcium 9.4 mg/dL (8.4-10.2); Carbon Dioxide 28 mmol/L (22-32); Chloride 104 mmol/L (98-107); Estimated Glomerular Filt Rate > 60.0 mL/min (>60); Globulin 4.5 g/dL (1.7-4.1); Glucose 93 mg/dL (70-100); HEMOLYSIS 19 (0-50); Magnesium 1.9 mg/dL (1.6-2.3); Phosphorous 3.8 mg/dL (2.5-4.5); Potassium 4.1 mmol/L (3.4-5.1); Sodium 138 mmol/L (137-145); Total Protein 8.7 g/dL (6.3-8.2)
[2020-12-04 18:36] LABS: Free T4, Direct Thyroxine 1.22 ng/dL (0.78-2.19); Vitamin D 25 Hydroxy (D3) 13.2 ng/mL (30.0-100.0)
[2020-12-04 18:49] LABS: Thyroid Stimulating Hormone 1.72 uIU/mL (0.47-4.68)
[2020-12-07 16:32] LABS: Lamotrigine Lamictal <1.0 ug/mL (2.0-20.0)
== END ==
PROVIDERS: Family Provider Nurse Practitioner Family; PCP Nurse Practitioner Family; Referring Provider Obstetrics & Gynecology; Visit Provider Nurse Practitioner Family
DX: F50.2 Bulimia nervosa (principal); Z51.81 Encounter for therapeutic drug level monitoring; E28.2 Polycystic ovarian syndrome
CPT/HCPCS: 36415; 80053; 80175; 82306; 83036; 83735; 84100; 84439; 84443; 85027

== ENCOUNTER → 2020-12-20 07:32 | Outpatient (CLI) | payer BC, SELFPAY ==
[2020-12-20 08:27] LABS: Add Manual Diff / Slide Review NO; Basophils Absolute Auto 0 /uL (0-100); Basophils Percent Auto 0.4 % (0-2); Eosinophils Absolute Auto 300 /uL (0-450); Eosinophils Percent Auto 2.8 % (2-4); Hematocrit 37.9 % (36-46); Hemoglobin 12.5 g/dL (12.0-16.0); Lymphocytes Absolute Auto 4300 /uL (1100-4500); Lymphocytes Percent Auto 38.9 % (25-40); Mean Corpuscular HGB Conc 33.1 % (30-36); Mean Corpuscular Hemoglobin 29.3 PG (26-34); Mean Corpuscular Volume 88.6 fL (80-100); Monocytes Absolute Auto 1000 /uL (0-900); Neutrophils Absolute Auto 5400 /uL (1500-7000); Neutrophils Percent Auto 48.9 % (50-75); Platelet Count 451 X10^3/uL (150-400); Red Blood Cell Count 4.27 X10^6/uL (4.0-5.2); Red Cell Distribution Width 13.4 % (11.6-14.8)
[2020-12-22 16:36] LABS: Albumin 3.3 g/dL (2.9-4.4); Alpha 1 Globulin 0.2 g/dL (0.0-0.4); Alpha 2 Globulin 0.7 g/dL (0.4-1.0); Beta 1 Globulin 1.3 g/dL (0.7-1.3); Gamma Globulin 2.1 g/dL (0.4-1.8); Protein, Total 7.7 g/dL (6.0-8.5)
== END ==
PROVIDERS: Family Provider Nurse Practitioner Family; PCP Nurse Practitioner Family; Referring Provider Nurse Practitioner Family; Visit Provider Nurse Practitioner Family
DX: R79.89 Other specified abnormal findings of blood chemistry (principal); E88.09 Other disorders of plasma-protein metabolism, not elsewhere classified
CPT/HCPCS: 36415; 84155; 84165; 85025

== ENCOUNTER → 2021-04-02 09:26 | Outpatient (CLI) | payer BC, SELFPAY ==
[2021-04-02 12:07] LABS: Add Manual Diff / Slide Review NO; Basophils Absolute Auto 100 /uL (0-100); Basophils Percent Auto 0.4 % (0-2); Eosinophils Absolute Auto 200 /uL (0-450); Hematocrit 38.9 % (36-46); Hemoglobin 13.2 g/dL (12.0-16.0); Lymphocytes Absolute Auto 3400 /uL (1100-4500); Lymphocytes Percent Auto 30.4 % (25-40); Mean Corpuscular HGB Conc 33.9 % (30-36); Mean Corpuscular Hemoglobin 29.6 PG (26-34); Mean Corpuscular Volume 87.1 fL (80-100); Monocytes Absolute Auto 700 /uL (0-900); Monocytes Percent Auto 6.1 % (3-14); Neutrophils Absolute Auto 6900 /uL (1500-7000); Neutrophils Percent Auto 61.1 % (50-75); Platelet Count 402 X10^3/uL (150-400); Red Blood Cell Count 4.46 X10^6/uL (4.0-5.2); Red Cell Distribution Width 13.5 % (11.6-14.8); White Blood Cell Count 11.3 X10^3/uL (4.5-11.0)
[2021-04-02 12:25] LABS: Alanine Aminotransferase 17 IU/L (<35); Albumin 3.9 g/dL (3.5-5.0); Alkaline Phosphatase 98 U/L (38-126); Aspartate Aminotransferase 20 IU/L (14-36); Bilirubin Total 0.8 mg/dL (0.2-1.3); Blood Urea Nitrogen 9 mg/dL (7-17); Calcium 9.2 mg/dL (8.4-10.2); Carbon Dioxide 28 mmol/L (22-32); Chloride 104 mmol/L (98-107); Estimated Glomerular Filt Rate > 60.0 mL/min (>60); Globulin 3.8 g/dL (1.7-4.1); Glucose 90 mg/dL (70-100); HEMOLYSIS < 15 (0-50); Potassium 4.6 mmol/L (3.4-5.1); Sodium 138 mmol/L (137-145); Total Protein 7.7 g/dL (6.3-8.2)
[2021-04-02 15:42] LABS: Vitamin D 25 Hydroxy (D3) < 12.8 ng/mL (30.0-100.0)
== END ==
PROVIDERS: Family Provider Nurse Practitioner Family; PCP Nurse Practitioner Family; Referring Provider Nurse Practitioner Family; Visit Provider Nurse Practitioner Family
DX: E55.9 Vitamin D deficiency, unspecified (principal); E88.09 Other disorders of plasma-protein metabolism, not elsewhere classified; R79.89 Other specified abnormal findings of blood chemistry; Z00.00 Encounter for general adult medical examination without abnormal findings
CPT/HCPCS: 36415; 80053; 82306; 85025

== ENCOUNTER → 2022-06-01 08:54 | Outpatient (CLI) | payer BC, SELFPAY ==
[2022-06-01 10:41] LABS: Hemoglobin A1C% w Est Avg Glu 5.5 % (4.0-6.0)
[2022-06-01 10:44] LABS: Alanine Aminotransferase 23 IU/L (<35); Albumin 4.3 g/dL (3.5-5.0); Albumin Globulin Ratio 1.2 (1.0-2.8); Alkaline Phosphatase 82 U/L (38-126); Aspartate Aminotransferase 22 IU/L (14-36); BUN Creatinine Ratio 20.3 (6-22); Bilirubin Total 0.8 mg/dL (0.2-1.3); Blood Urea Nitrogen 12 mg/dL (7-17); Calcium 9.1 mg/dL (8.4-10.2); Carbon Dioxide 28 mmol/L (22-32); Chloride 101 mmol/L (98-107); Estimated Glomerular Filt Rate > 60 mL/min (>60); Globulin 3.6 g/dL (1.7-4.1); Glucose 91 mg/dL (70-100); HEMOLYSIS < 15 (0-50); Potassium 4.5 mmol/L (3.4-5.1); Sodium 137 mmol/L (137-145); Total Protein 7.9 g/dL (6.3-8.2)
[2022-06-01 11:14] LABS: TSH w/ Reflex to FT4 1.42 uIU/mL (0.47-4.68)
== END ==
PROVIDERS: Family Provider Nurse Practitioner Family; PCP Family Medicine; Referring Provider Family Medicine; Visit Provider Family Medicine
DX: E28.2 Polycystic ovarian syndrome (principal); R03.0 Elevated blood-pressure reading, without diagnosis of hypertension; Z83.3 Family history of diabetes mellitus
CPT/HCPCS: 36415; 80053; 83036; 84443